=== PATIENT | female | born 1990 | race Caucasian/White ===

== ENCOUNTER 2019-01-30 20:25 | Emergency (ER) | payer MEDICAID, OTHER ==
[~2019-01-30] VITALS: Ht 157.5 cm; Wt 89.4 kg
[2019-01-30 20:28] VITALS: BP 127/62
[2019-01-30] MEDS ORDERED: NACL 0.9% 1,000 ML IV ONE (21:15)
[2019-01-30] MEDS ORDERED: ONDANSETRON 4 MG/2 ML VIAL IVP ONE (21:15)
[2019-01-30] MEDS ORDERED: KETOROLAC 30 MG/ML VIAL IVP ONE (21:20)
[2019-01-30 21:42] LABS: BASOPHILS # (AUTO) 0.1 K/uL (0.00-0.22); BASOPHILS % (AUTO) 0.4 % (0.0-2.0); EOSINOPHILS % (AUTO) 0.3 % (0.0-4.0); HEMATOCRIT 38.9 % (36-48); HEMOGLOBIN 12.8 g/dL (12.0-16.0); LYMPHOCYTES # (AUTO) 1.5 K/uL (2.5-16.5); LYMPHOCYTES % (AUTO) 11.5 % (20.5-51.1); MEAN CORPUSCULAR HEMOGLOBIN 30 pg (27-31); MEAN CORPUSCULAR HGB CONC 33 g/dL (33-37); MEAN CORPUSCULAR VOLUME 91.3 fL (80-94); MONOCYTES # (AUTO) 0.5 K/uL (0.8-1.0); MONOCYTES % (AUTO) 3.8 % (1.7-9.3); NEUTROPHILS # (AUTO) 10.9 K/uL (1.8-7.7); PLATELET COUNT (AUTO) 247 K/uL (140-450); RED BLOOD CELL COUNT(AUTO) 4.25 MIL/uL (4.20-5.40); RED CELL DISTRIBUTION WIDTH 13.2 % (11.6-13.7); WHITE BLOOD COUNT (AUTO) 12.9 K/uL (4.8-10.8)
[2019-01-30 21:55] LABS: CARBON DIOXIDE 26.8 mmol/L (21-32); CREATININE 0.9 mg/dL (0.6-1.3); POTASSIUM 3.8 mmol/L (3.5-5.1)
--- NOTE | 2019-01-30 22:00 | NUR ---
PT BIB SELF FOR N/V/D AND ABD PAIN STARTING TODAY . ABD ROUND, SOFT, NON TENDER, ACTIVE BS 4. PT STATE SHE ALSO WAS FEELING DIZZY TODAY. PT SITTING IN CHAIR, VSS. NO PMH
[2019-01-30 22:01] LABS: TOTAL BILIRUBIN 0.1 mg/dL (0.0-1.0)
--- NOTE | 2019-01-30 22:15 | NUR ---
PT REPORTS NO NAUSEA OR PAIN AT THIS TIME, IVF INFUSING WELL AT THIS TIME.
--- NOTE | 2019-01-30 22:50 | NUR ---
Patient discharged with v/s stable. Written and verbal after care instructions given and explained. Patient alert, oriented and verbalized understanding of instructions. Ambulatory with steady gait. All questions addressed prior to discharge. ID band removed. Patient advised to follow up with PMD. Rx of ZOFRAN, TYLENOL given. Patient educated on indication of medication including possible reaction and side effects. Opportunity to ask questions provided and answered.
[2019-01-30 22:55] VITALS: BP 106/60
== END 2019-01-30 22:50 | disposition home or self-care (01) ==
LOC: MED 20:25
DX: A08.4 Viral intestinal infection, unspecified (principal); R42 Dizziness and giddiness; D64.9 Anemia, unspecified
CPT/HCPCS: 36415; 80053; 81002; 81025; 85025; 96361; 96374; 96375; 99283; J1885; J2405; J7030

== ENCOUNTER 2019-05-25 08:06 | Emergency (ER) | payer OTHER ==
[~2019-05-25] VITALS: Ht 160 cm; Wt 88.0 kg
[2019-05-25 08:15] VITALS: BP 106/64
--- NOTE | 2019-05-25 08:19 | NUR ---
C/O PRODUCTIVE COUGH X 2 WEEKS, SORE THROAT X 2 DAYS, FEVER 102F LAST NIGHT. TEMP 98.5 AT THIS TIME. POST TUSSIVE VOMITING 1X IN AM TODAY. +NASAL CONGESTION COUGH WORSE AT NIGHT. PAIN IN THROAT AND CP WITH COUGH. MED HX: DENIES
--- NOTE | 2019-05-25 08:19 | NUR ---
PATIENT AMBULATED WITH STEADY GAIT TO BED 4.
--- NOTE | 2019-05-25 08:28 | NUR ---
DR MALLOY EVALUATING PT AT BEDSIDE
[2019-05-25 08:42] VITALS: BP 106/64
--- NOTE | 2019-05-25 08:42 | NUR ---
Patient discharged with v/s stable. Written and verbal after care instructions given and explained. Patient alert, oriented and verbalized understanding of instructions. Ambulatory with steady gait. All questions addressed prior to discharge. ID band removed. Patient advised to follow up with PMD. Rx of TAMIFLU, MOTRIN, PROMETHAZINE DM given. Patient educated on indication of medication including possible reaction and side effects. Opportunity to ask questions provided and answered.
== END 2019-05-25 08:42 | disposition home or self-care (01) ==
LOC: MED 08:06
DX: J11.1 Influenza due to unidentified influenza virus with other respiratory manifestations (principal)
CPT/HCPCS: 99283